=== PATIENT | female | born 2000 | race Caucasian/White ===

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

== ENCOUNTER 2022-11-24 16:39 | Emergency (ER) | payer SELFPAY ==
[2022-11-24 16:56] VITALS: BP 122/57; PULSE 97; RESP 16; TEMP 36.9; O2SAT 97; BMI 45.8
--- NOTE | 2022-11-24 16:57 | PC.NURSE ---
ELLYN MAR at for pt estefaniaal
[2022-11-24 16:59] LABS: Microscopic, Urine URINE MICROSCOPIC (MICROSCOPIC)
--- NOTE | 2022-11-24 17:00 | CT_ITS ---
PROCEDURE INFORMATION: Exam: CT Abdomen And Pelvis With Contrast Exam date and time: 11/24/2022 5:32 PM Age: 22 years old Clinical indication: Abdominal pain; Localized; Lower; Prior surgery; Surgery date: 1-6 months; Surgery type: Ovary; Additional info: Post-op pain TECHNIQUE: Imaging protocol: Computed tomography of the abdomen and pelvis with contrast. Radiation optimization: All CT scans at this facility use at least one of these dose optimization techniques: automated exposure control; mA and/or kV adjustment per patient size (includes targeted exams where dose is matched to clinical indication); or iterative reconstruction. Contrast material: ISOVUE; Contrast volume: 75 ml; Contrast route: IV; COMPARISON: ABDPELW CT abdomen pelvis w con 04/11/2019 5:03 PM FINDINGS: Lungs: No acute findings in the visualized lower lungs. No consolidation. Heart: The heart is not enlarged. Liver: Mild hepatomegaly. No mass. Gallbladder and bile ducts: The gallbladder is unremarkable. No calcified stones or biliary dilatation. Pancreas: The pancreas is normal. Spleen: Prominent splenomegaly approximate 17.3 cm long axis coronal image 43. Calcified granuloma. Adrenal glands: The adrenal glands are normal. Kidneys and ureters: The kidneys are normal. The ureters are normal. Stomach and bowel: There is a thickened left lower quadrant sigmoid loop with tiny hyperdense nodule suspicious for an inflamed diverticulum, with prominent pericolic soft tissue edema, series 3, images 103-112, coronal series 1001, images 45 -54. This is probably acute diverticulitis, differential would be colitis. No organized pericolic abscess. No extraluminal gas bubbles. No acute findings in the small intestine or stomach. Appendix: Post appendectomy. Intraperitoneal space: There is no free intraperitoneal air. No significant free intraperitoneal fluid collection. Vasculature: The vasculature is normal. Lymph nodes: Some prominent partially calcified right hilar and mediastinal lymph nodes in the chest.No significantly enlarged lymph nodes in the abdomen or pelvis by short axis criteria. Urinary bladder: The bladder is normal. Reproductive: Post left oophorectomy. Prominent right ovary measuring 5.0 x 3.1 x 3.6 cm diameter, containing a 2.7 cm cystic lesion, and additional smaller follicles. Axial series 3, image 110, coronal image 55. Retroverted uterus, unremarkable for age. Bones/joints: There is no evidence of acute fracture. Mild multilevel degenerative disc narrowing and spondylosis. Mild sacroiliitis. Soft tissues: There are no soft tissue masses or loculated fluid collections. IMPRESSION: 1. Findings most consistent with acute sigmoid diverticulitis. Thickened edematous sigmoid loop, small hyperdense, likely inflamed diverticulum, pericolic edema. No organized pericolic abscess or extraluminal gas bubbles. Less likely differential would be colitis. 2. Prominent right ovary with 2.7 cm cystic lesion, which is within normal limits size for age. Post left oophorectomy and left dermoid tumor resection since the prior CT. 3. Hepatosplenomegaly. 4. Additional nonemergency and chronic findings as above.
--- NOTE | 2022-11-24 17:01 | HMH.EDGENADL ---
Discharge Plan Disposition Patient Disposition: Home, Self-Care Condition: Good Prescriptions Prescriptions: New ciprofloxacin HCl 500 mg tablet 500 mg PO BID 10 Days Qty: 20 0RF metronidazole 500 mg tablet 500 mg PO BID 10 Days Qty: 20 0RF No Action metformin 500 tablet 500 tab PO BID norgestimate-ethinyl estradiol 1 EACH tablet 1 tab PO DAILY fluoxetine 20 MG capsule 30 mg PO DAILY hydrocodone-acetaminophen 1 TAB tablet 1 - 2 tab PO Q6HP PRN (Reason: Moderate Pain) Qty: 21 0RF amoxicillin-pot clavulanate 1 EACH tablet 1 tab PO Q12H Qty: 10 0RF Referrals Follow up/Referrals: Provider,Referral, MD [Primary Care Provider] - See instructions Clinical Impressions Clinical Impression: Diverticulitis Instructions Patient Instructions: DI for Acute Abdominal Pain, DI for Diverticulitis, Diverticulitis, Ciprofloxacin, Metronidazole Discharge ED Provider: Dougie Trejo General Adult HPI General Chief complaint: Abdominal Pain Stated complaint: lower ABD pain Time Seen by Provider: 11/24/22 16:48 Mode of Arrival: Ambulatory Source of Information: Patient and Spouse Limitations: No Limitations Description of Symptoms (Recalled from ER Triage Doc. by RN): pt comes in today with c/o abdominal pain that radiate into the left side of the groin. associated nausea. pt did have a left ovary removed previously this year. History of Present Illness HPI narrative: 22-year-old female, past medical history of appendicitis status post appendectomy several years ago, also had left oophorectomy due to numerous ovarian cysts including dermoid cyst causing pain. She has been exposed to family members with acute gastrointestinal illness including her brother who was seen here earlier today. She presents with nausea without vomiting however having significant abdominal pain in the lower abdomen particularly on the left side radiating into the groin. This pain started this morning, has been persistent throughout the day. She states she is having difficulty with bowel movements although was able to pass gas. Denies any abdominal distention, fevers, hematemesis, hematochezia or melena. No known history of inflammatory bowel disease, no prior history of bowel obstruction. She has not attempted any treatments for symptomatic relief prior to arrival here. Pain described as moderate, fairly constant Related Data Home Medications Medication Instructions Recorded Confirmed fluoxetine 20 mg capsule 30 mg PO DAILY Depression 04/11/19 04/17/19 metformin 500 mg tablet 500 tab PO BID Diabetes 04/11/19 04/17/19 norgestimate 0.25 mg-ethinyl 1 tab PO DAILY control 04/11/19 04/17/19 estradiol 35 mcg tablet Previous Rx's Medication Instructions Recorded amoxicillin 875 mg-potassium 1 tab PO Q12H #10 tabs 04/13/19 clavulanate 125 mg tablet hydrocodone 5 mg-acetaminophen 325 1 - 2 tab PO Q6HP PRN Moderate 04/13/19 mg tablet Pain #21 tabs ciprofloxacin HCl 500 mg tablet 500 mg PO BID 10 days #20 tabs 11/24/22 metronidazole 500 mg tablet 500 mg PO BID 10 days #20 tabs 11/24/22 Allergies Allergy/AdvReac Type Severity Reaction Status Date / Time No Known Allergies Allergy Verified 04/17/19 13:[address] [facility] Disclaimer: The information contained in this section may have been updated after the patient was seen, as this information can be updated by other users. Social History Smoking Status: Current every day smoker tobacco type: cigarettes packs per day: 1 second hand exposure: No alcohol intake: never current occupational status: student Travel in the last 8 weeks: None household members: family housing: other current occupational exposures/hazards: No caffeine: Yes ROS Obtained: Yes Systems reviewed as appropriate & no additional complaints except as documented Constitutional Constitutional: Reports system rev
[2022-11-24 17:06] LABS: Appearance,Urine CLOUDY (Clear); Bilirubin,Urine Negative (Negative); Blood, Urine 1+ (Negative); Color,Urine YELLOW (Yellow); Glucose,Urine (UA) Negative (Negative); Ketones,Urine Negative (Negative); Leukocyte Esterase,Urine 2+ (Negative); Nitrate,Urine Negative (Negative); Protein,Urine 1+ (Negative); Urine Pregnancy, HCG Qual. Negative (Negative); Urobilinogen,Urine 0.2 EU/dl (0.2)
[2022-11-24 17:28] LABS: Bacteria,Urine 2+ /lpf
[2022-11-24 17:48] LABS: Basophils # 0.2 K/mm3 (0-0.2); Eosinophils # 0.3 K/mm3 (0.0-0.4); Eosinophils % 1.8 % (0.1-12.0); Hematocrit 37.1 % (37.0-47.0); Hemoglobin 12.1 g/dL (12.2-16.2); Lymphocytes # 2.4 K/mm3 (0.7-4.5); Lymphocytes % 14.8 % (10-50); Mean Corpuscular HGB Conc 32.5 g/dL (31.8-35.4); Mean Corpuscular Hemoglobin 23.4 pg (27.0-31.2); Mean Corpuscular Volume 71.9 fl (81-99); Mean Platelet Volume 7.3 fl (7.4-10.4); Monocytes # 0.6 K/mm3 (0.1-1.0); Monocytes % 3.4 % (1.7-9.3); Platelet Count 377 K/mm3 (142-424); Red Blood Count 5.16 M/mm3 (4.20-5.40); Red Cell Distribution Width 15.4 % (11.5-17.5); White Blood Count 16.4 K/mm3 (4.8-10.8)
[2022-11-24 17:51] LABS: Chloride 102 mmol/L (98-107); Potassium 3.8 mmoL/L (3.5-5.1); Sodium 138 mmol/L (136-145)
[2022-11-24 17:53] LABS: Alanine Aminotransferase 14 U/L (12-78); Aspartate Amino Transferase 18 U/L (14-36); Blood Urea Nitrogen 8 mg/dl (7-17); Creatinine Clearance Estimated 133 mL/min (50-200); Estimated Glomerular Filt Rate 106 ml/min (>60); GFR (African American) 128 ML/MIN (>60)
[2022-11-24 17:54] LABS: Albumin Level 4.4 g/dl (3.5-5.0); Albumin/Globulin Ratio 1.2 (1.1-1.8); Alkaline Phosphatase 76 U/L (38-126); Anion Gap 12.8 mEq/L (5-15); Bilirubin,Total 0.5 mg/dl (0.2-1.3); Calcium 9.1 mg/dl (8.4-10.2); Carbon Dioxide 27 mmol/L (22.0-30.0); Globulin 3.8 g/dL (1.3-3.2); Glucose 98 mg/dl (74-100); Lipase 43 U/L (23-300); Total Protein,Serum 8.2 g/dl (6.3-8.2)
[2022-11-24 18:07] LABS: MANUAL DIFFERENTIAL MANUAL DIFFERENTIAL (MANUAL DIFF)
[2022-11-24 18:29] LABS: Eosinophils % 1 % (0-3); Hypochromasia 2+; Lymphocytes % 11 % (10-50); Monocytes % 3 % (2-9); Neutrophils % 85 % (42-76); Total Cells Counted 100
[2022-11-24 18:30] LABS: Microcytosis 1+; Platelet Estimate Normal
[2022-11-24 18:45] VITALS: BP 142/60; PULSE 78; RESP 18; TEMP 36.8; O2SAT 99
== END 2022-11-24 18:46 | disposition home or self-care (01) ==
PROVIDERS: Emergency Provider Emergency Medicine
DX: K57.92 Diverticulitis of intestine, part unspecified, without perforation or abscess without bleeding (principal); R10.32 Left lower quadrant pain; R11.0 Nausea; F17.210 Nicotine dependence, cigarettes, uncomplicated
CPT/HCPCS: 74177; 80053; 81001; 81025; 83690; 85007; 85025; 87086; 96361; 96374; 96375; 99285; J2405; Q9967

== ENCOUNTER 2025-01-29 21:53 | Outpatient (CLI) | payer OTHER, SELFPAY ==
[2025-01-29 22:29] LABS: Basophils % 0.6 % (0.1-2.0); Eosinophils # 0.2 K/mm3 (0.0-0.4); Eosinophils % 2.1 % (0.1-12.0); Hematocrit 35.6 % (37.0-47.0); Hemoglobin 10.9 g/dL (12.2-16.2); Lymphocytes # 1.7 K/mm3 (0.7-4.5); Lymphocytes % 23.4 % (10-50); Mean Corpuscular HGB Conc 30.6 g/dL (31.8-35.4); Mean Corpuscular Hemoglobin 23.6 pg (27.0-31.2); Mean Corpuscular Volume 77.1 fl (81-99); Mean Platelet Volume 9.9 fl (7.4-10.4); Monocytes # 0.5 K/mm3 (0.1-1.0); Monocytes % 6.4 % (1.7-9.3); Neutrophils # 4.8 K/mm3 (1.8-7.8); Neutrophils % 67.1 % (37.0-80.0); Platelet Count 279 K/mm3 (142-424); Red Blood Count 4.62 M/mm3 (4.20-5.40); Red Cell Distribution Width 15.1 % (11.5-17.5); White Blood Count 7.2 K/mm3 (4.8-10.8)
[2025-01-29 22:44] LABS: Microalbumin/Creatinine Ratio 39.1
[2025-01-29 22:45] LABS: Creatinine,Urine Random 68 mg/dL (Not Estab.); Hemoglobin A1C 6.4 % (4.0-6.0)
[2025-01-29 22:48] LABS: Chloride 101 mmol/L (98-107); Potassium 3.9 mmoL/L (3.5-5.1); Sodium 134 mmol/L (136-145)
[2025-01-29 22:50] LABS: Alanine Aminotransferase 27 U/L (12-78); Aspartate Amino Transferase 30 U/L (14-36); Blood Urea Nitrogen 8 mg/dl (7-17); Estimated Glomerular Filt Rate 198 ml/min (>60); GFR (African American) 239 ML/MIN (>60)
[2025-01-29 22:51] LABS: Albumin/Globulin Ratio 1.6 (1.1-1.8); Alkaline Phosphatase 66 U/L (38-126); Anion Gap 13.9 mEq/L (5-15); Bilirubin,Total 0.3 mg/dl (0.2-1.3); Calcium 8.7 mg/dl (8.4-10.2); Carbon Dioxide 23 mmol/L (22.0-30.0); Chol/HDL Ratio 3.3 (1-3.5); Cholesterol 104 mg/dl (140-200); Globulin 2.5 g/dL (1.3-3.2); Glucose 84 mg/dl (74-100); HDL Cholesterol 32 mg/dl (40-60); Total Protein,Serum 6.5 g/dl (6.3-8.2); Triglycerides 138 mg/dl (30-150); VLDL Cholesterol 28 mg/dL (0-40)
[2025-01-29 23:02] LABS: Direct LDL Cholesterol 52.44 mg/dL (100-129)
[2025-01-29 23:23] LABS: Thyroid Stimulating Hormone 2.41 uIU/mL (0.465-4.68)
[2025-01-29 23:27] LABS: Ferritin 22.2 ng/ml (6.24-137)
[2025-01-29 23:32] LABS: 25-OH Vitamin D, Total < 12.8 ng/mL (30-100)
[2025-01-30 00:55] LABS: Vitamin B12 230 pg/mL (239-931)
[2025-01-31 09:18] LABS: HBsAg Screen Negative (Negative); HCV Ab Non Reactive (Non Reactive); Hep A Ab, IGM Negative (Negative); Hep B Core Ab, IgM Negative (Negative)
== END 2025-01-29 23:59 | disposition home or self-care (01) ==
LOC: LAB.DROPOF 21:53
PROVIDERS: PCP Internal Medicine; Visit Provider Internal Medicine
DX: E28.2 Polycystic ovarian syndrome (principal); K57.92 Diverticulitis of intestine, part unspecified, without perforation or abscess without bleeding; R53.83 Other fatigue; R73.03 Prediabetes; D64.9 Anemia, unspecified; E55.9 Vitamin D deficiency, unspecified; R16.0 Hepatomegaly, not elsewhere classified; R16.1 Splenomegaly, not elsewhere classified; E66.01 Morbid (severe) obesity due to excess calories; Z68.43 Body mass index [BMI] 50.0-59.9, adult; Z13.1 Encounter for screening for diabetes mellitus; Z11.59 Encounter for screening for other viral diseases
CPT/HCPCS: 80053; 80061; 80074; 82043; 82306; 82570; 82607; 82728; 83036; 84443; 85025; 86803

== ENCOUNTER 2025-09-24 23:10 | Emergency (ER) | payer SELFPAY ==
--- NOTE | 2025-09-24 23:13 | HMH.EDGENADL ---
Discharge Plan Disposition Patient Disposition: Home, Self-Care Condition: Good Prescriptions Prescriptions: New amoxicillin-pot clavulanate 400-57 mg/5 mL suspension for reconstitution 10 ml PO BID 5 Days Qty: 100 0RF ondansetron HCl 4 mg/5 mL solution 4 mg PO TID PRN (Reason: nausea and vomiting) 2 Days Qty: 50 0RF No Action ferrous sulfate 300 mg (60 mg iron)/5 mL liquid 300 mg PO DAILY Qty: 150 5RF cholecalciferol (vitamin D3) 50 mcg (2,000 unit) tablet,chewable 50 mcg PO DAILY Qty: 30 5RF Referrals Follow up/Referrals: Mich Moe MD [Primary Care Provider, Family Practice] - See instructions Activity Restrictions/Add. Instructions Additional Instructions/Restrictions: Please take antibiotics as prescribed for treatment of diverticulitis. Please follow-up with your primary care provider. Please return to the emergency department if you develop any new or worsening symptoms or become concerned for your health. Clinical Impressions Clinical Impression: Diverticulitis Instructions Patient Instructions: DI for Diverticulitis Print Language Print Language: Singaporean Discharge ED Provider: Fidel Chambers General Adult HPI General Chief complaint: Abdominal Pain Stated complaint: abd history diverticulitis Time Seen by Provider: 09/24/25 23:13 History of Present Illness HPI narrative: 25-year-old female with history of reticulitis and PCOS and morbid presents for abdominal pain. She reports it is centrally located, lower in the abdomen but radiating up. Started a few hours ago. She reports that it feels worse when she had diverticulitis. She has had appendicitis in the past and has had an appendectomy. She also had a left oophorectomy. She reports nausea. She has bowel movements every other day, no history of significant constipation Related Data Previous Rx's ?Medication ?Instructions ?Recorded cholecalciferol (vitamin D3) 50 50 mcg PO DAILY #30 tabs 02/11/ mcg (2,000 unit) chewable tablet ferrous sulfate 300 mg (60 mg 300 mg (5 mL) PO DAILY #150 mL 02/11/25 iron)/5 mL oral liquid amoxicillin 400 mg-potassium 10 ml PO BID 5 days #100 mL 09/25/25 clavulanate 57 mg/5 mL oral suspension ondansetron HCl 4 mg/5 mL oral 4 mg (5 mL) PO TID PRN nausea and 09/25/25 solution vomiting 48 hours #50 mL Allergies Allergy/AdvReac Type Severity Reaction Status Date / Time No Known Allergies Allergy Verified 03/19/25 14:06 [facility] Disclaimer: The information contained in this section may have been updated after the patient was seen, as this information can be updated by other users. Medical History B12 deficiency Microcytic anemia Prophylactic ovary removal Surgical History History of appendectomy Social History Smoking Status: Never smoker second hand exposure: No alcohol intake: never current occupational status: student Travel in the last 8 weeks?: None household members: family housing: other current occupational exposures/hazards: No caffeine: Yes Have you lived/traveled outside [place] in past 30 days?: No Contact w/someone who lives/traveled outside US past 30 days?: No Exposure to someone with infectious disease in past 14 days?: No Do you have a fever (greater than 100.4 F or 38 C)?: No Have you tested positive for COVID-19?: No Exposed to someone with COVID-19 in past 14 days?: No Do you have a sore throat?: No Do you have a cough?: No Do you have any weakness?: No Do you have any diarrhea?: No Are you experiencing any unusual bleeding?: No Do you have any muscle aches/pain?: No Do you have any abdominal pain?: Yes Are you experiencing loss of taste or smell?: No Other Medical History Have you received the Flu Vaccine for this season: No Have you received the Pneumonia Vaccine: No ROS Obtained: Yes All systems reviewed & no additional complaints except as documented Physical Exam General General appearance: alert and in no apparent distress Head Head exam: atraumatic and normocephalic Eye Eye exam: Present normal appearance, PERRL and EOMI ENT ENT exam: Present normal oropharynx and normal external ear exam Neck Neck exam: Present normal inspection and full ROM Chest Chest inspection: Present normal inspection and symmetric chest wall rise; Absent tenderness Respiratory Respiratory exam: Present normal lung sounds bilaterally; Absent respiratory distress Cardiovascular Cardiovascular exam: Present regular rate and normal rhythm Abdominal Exam Abdominal exam: Present soft and tenderness (Suprapubic, epigastric, mild); Absent distention or guarding Extremities Exam Extremities exam: Present normal inspection; Absent edema or joint swelling Back Exam Back exam: Present normal inspection; Absent tenderness Neurological Exam Neurological exam: Present alert and oriented X3; Absent motor sensory deficit Psychiatric Psychiatric exam: Present normal affect and normal mood Skin Skin exam: Present warm, dry and normal color Lymphatic Lymphatic Findings: no adenopathy Medical Decision Making Medical Records Medical records reviewed: Yes I reviewed the patient's medical records. Screening: Per USPSTF and CDC recommendations, given the prevalence of disease in our region, it is our hospital?s policy to screen for HIV and viral Hepatitis for all patients aged 18 and over and those with ongoing risk factors. Wilder Inquiry Pt receiving controlled substance: No Wilder was queried for this patient: No Vital Signs: 09/24/25 23:20 09/24/25 23:36 09/25/25 01:14 Temperature 97.8 F 97.8 F 97.9 F Temperature Source Oral Oral Oral Pulse Rate 97 H 73 Pulse Rate [Right Radial] 100 H Respiratory Rate 18 16 16 Blood Pressure 131/89 117/67 Blood Pressure [Right Arm] 163/91 H Blood Pressure Mean [Right Arm] 115 Blood Pressure Source Automatic Cuff Automatic Cuff Blood Pressure Source [Right Arm] Automatic Cuff Blood Pressure Position Sitting Supine Blood Pressure Position [Right Arm] Sitting 02 Sat by Pulse Oximetry 100 99 Oxygen Delivery Method Room Air Room Air Room Air Lab Data Lab results reviewed: Yes I reviewed the patient's lab results. Lab Results 09/24/25 23:23: Urine Color Yellow, Urine Appearance Clear, Urine pH 6.0, Ur Specific [place] 1.020, Urine Protein Negative, Urine Glucose (UA) Negative, Urine Ketones Negative, Urine Blood Negative, Urine Nitrate Positive A, Urine Bilirubin Negative, Urine Urobilinogen 0.2, Ur Leukocyte Esterase Negative, Urine RBC None, Urine WBC None, Ur Squamous Epith Cells None, Urine Bacteria 4+, Urine HCG, Qual Negative, Ur C. trach DNA (PCR) Negative, U N.gonorrhoeae DNA PCR Negative, T. vaginalis (PCR) Negative 09/24/25 23:30: WBC 15.8 H, RBC 5.16, Hgb 11.8 L, Hct 37.7, MCV 73.1 L, MCH 22.9 L, MCHC 31.3 L, RDW 14.6, Plt Count 317, MPV 9.1, Neut % (Auto) 81.1 H, Lymph % (Auto) 13.7, [place] % (Auto) 3.8, Eos % (Auto) 0.8, Baso % (Auto) 0.3, Neut # (Auto) 12.8 H, Lymph # (Auto) 2.2, [place] # (Auto) 0.6, Eos # (Auto) 0.1, Baso # (Auto) 0.0, Sodium 136, Potassium 4.1, Chloride 102, Carbon Dioxide 26, Anion Gap 12.1, BUN 11, Creatinine 0.70, Estimated Creat Clear 121, Estimated GFR 103, Est GFR ( Amer) 124, Glucose 130 H, Calcium 9.0, Magnesium 1.9, Total Bilirubin 0.6, AST 21, ALT 20, Alkaline Phosphatase 66, Total Protein 7.8, Albumin 4.9, Globulin 2.9, Albumin/Globulin Ratio 1.7, Lipase 61 09/24/25 23:30 09/24/25 23:30 Orders (Tests/Meds): ED MEDICATIONS Discontinued Medications Generic Name Dose Route Start Last Admin Trade Name Asaelq PRN Reason Stop Dose Admin Acetaminophen 1,000 mg 09/24/25 23:39 09/24/25 23:52 Acetaminophen 500mg Tab PO 09/24/25 23:40 1,000 mg ONCE ONE Administration Amoxicillin/Clavulanate Potassium 1 each 09/25/25 00:48 09/25/25 00:56 Amoxicillin/Clavulanate Potassium 875/125mg Tablet PO 09/25/25 00:49 1 each ONCE ONE Administration Belladonna Alkaloids 60 ml 09/24/25 23:39 09/24/25 23:52 Belladonna Alkaloids 60 Ml Ml PO 09/24/25 23:40 60 ml ONCE ONE Administration Iopamidol 75 ml 09/25/25 00:12 09/25/25 00:12 Iopamidol-370 (76%);100ml Bottle IV 09/25/25 00:13 75 ml ONCE ONE Administration Ketorolac Tromethamine 30 mg 09/24/25 23:43 09/24/25 23:52 Ketorolac 30mg/Ml Vial IV 09/24/25 23:44 30 mg ONCE ONE Administration Morphine Sulfate 4 mg 09/24/25 23:39 09/24/25 23:52 Morphine 4mg/Ml Syringe IV 09/24/25 23:40 4 mg ONCE ONE Administration Ondansetron HCl 4 mg 09/24/25 23:39 09/24/25 23:53 Ondansetron 4mg/2ml Vial IV 09/24/25 23:40 4 mg ONCE ONE Administration Sodium Chloride 10 ml 09/25/25 00:12 09/25/25 00:13 Sodium Chloride 0.9% 10ml Syr (Rad Only) IV 10/25/25 00:11 10 ml NEEDED PRN Administration Maintain IV Site ORDERS Category Date Time Status CT abdomen pelvis w con Stat Cat Scan 09/24/25 23:42 Completed CBC w/Auto Diff [Complete Blood Count Auto Diff] Stat Lab 09/24/25 23:30 Completed CMP [Comprehensive Metabolic Panel] Stat Lab 09/24/25 23:30 Completed Lipase Stat Lab 09/24/25 23:30 Completed Magnesium Stat Lab 09/24/25 23:30 Completed Urinalysis and Microscopic Stat Lab 09/24/25 23:23 Completed Urine Chlam/Gono/Trich ([facility]) Stat Lab 09/24/25 23:23 Completed Urine , HCG Qual. Stat Lab 09/24/25 23:23 Completed Urine Culture Stat Micro 09/24/25 23:23 Received Medical Decision Narrative: 25-year-old female with history of diverticulitis, obesity, PCOS, presents for midline abdominal pain. Denies any urinary symptoms.. History was obtained via interactive discussion with patient, chart review. On arrival, patient is [afebrile, hemodynamically stable, satting appropriately, alert, oriented x4, GCS 15], moving all extremities spontaneously. Full physical exam performed and significant for mild midline abdominal tenderness to palpation Differential includes but is not limited to diverticulitis, UTI, kidney stone, ovarian pathology, gastroenteritis, pancreatitis. Patient was given Tylenol Toradol morphine Zofran GI cocktail for symptomatic management and correction of underlying abnormalities. Workup initiated including CBC CMP test lipase urinalysis CT abdomen and pelvis with IV contra. On re-evaluation, patient [remains afebrile, HD stable.] Laboratory workup independently interpreted by me and significant for mild leukocytosis with white count of 15, no significant electrolyte derangement. Urinalysis does have positive nitrates and 4+ bacteria, but has no WBCs. negative.. Imaging independently interpreted by me and significant for findings consistent with sigmoid diverticulitis. See radiology read for full review of final results. Given patient history, exam and workup, patient's presentation most likely represents sigmoid diverticulitis. The patient has a urinalysis concerning for infection, but she does not have any urinary symptoms and has a clear other source for her abdominal pain. Given this, we will treat for diverticulitis with Augmentin. Urine culture results could be followed up. Patient discharged with prescription for Zofran and Augmentin. Return precautions given.. Procedures Risk/Benefits of Procedure(s) Were Explained: Yes Critical Care Critical Care Time Critical Care Time: No
[2025-09-24 23:20] VITALS: BP 163/91; PULSE 100; RESP 18; TEMP 36.6; O2SAT 100; BMI 50.1
[2025-09-24 23:32] LABS: Microscopic, Urine URINE MICROSCOPIC (MICROSCOPIC)
[2025-09-24 23:36] VITALS: BP 131/89; PULSE 97; RESP 16; TEMP 36.6; O2SAT 99
[2025-09-24 23:40] LABS: Bilirubin,Urine Negative (Negative); Color,Urine YELLOW (Yellow); Glucose,Urine (UA) Negative (Negative); Ketones,Urine Negative (Negative); Leukocyte Esterase,Urine Negative (Negative); PH,Urine 6.0 (5.0-8.5); Protein,Urine Negative (Negative); Specific Gravity, Urine 1.020 (1.005-1.030); Urobilinogen,Urine 0.2 EU/dl (0.2)
[2025-09-24 23:41] LABS: Urine Pregnancy, HCG Qual. Negative (Negative)
--- NOTE | 2025-09-24 23:42 | CT_ITS ---
PROCEDURE INFORMATION: Exam: CT Abdomen And Pelvis With Contrast Exam date and time: 09/25/2025 12:03 AM Age: 25 years old Clinical indication: Abdominal pain; Additional info: Central abd pain, HX divertic, appy, L oopharect TECHNIQUE: Imaging protocol: Computed tomography of the abdomen and pelvis with contrast. Radiation optimization: All CT scans at this facility use at least one of these dose optimization techniques: automated exposure control; mA and/or kV adjustment per patient size (includes targeted exams where dose is matched to clinical indication); or iterative reconstruction. Contrast material: ISOVUE; Contrast volume: 75 ml; Contrast route: IV; COMPARISON: CT ABDOMEN PELVIS W CON 11/24/2022 5:32 PM FINDINGS: Liver: Normal. No mass. Gallbladder and biliary ducts: Normal. No calcified stones. No ductal dilation. Pancreas: Normal. No ductal dilation. Spleen: Normal. No splenomegaly. Adrenal glands: Normal. No mass. Kidneys and ureters: Normal. No hydronephrosis. Stomach and bowel: Mild sigmoid diverticulosis. Fatty stranding suggesting acute inflammation about the sigmoid colon and adjacent small bowel loops concerning for sigmoid diverticulitis and/or enteritis. No evidence of bowel obstruction. Appendix: No evidence of appendicitis. Intraperitoneal space: Unremarkable. No free air. No significant fluid collection. Vasculature: Unremarkable. No abdominal aortic aneurysm. Lymph nodes: Unremarkable. No enlarged lymph nodes. Urinary bladder: Unremarkable as visualized. Reproductive: Unremarkable as visualized. Bones/joints: Unremarkable. No acute fracture. Soft tissues: Unremarkable. IMPRESSION: Inflammatory changes in the pelvis with the appearance suggesting sigmoid diverticulitis and/or adjacent enteritis.
[2025-09-24 23:47] LABS: Hematocrit 37.7 % (37.0-47.0); Hemoglobin 11.8 g/dL (12.2-16.2); Immature Granulocytes % 0.3 %; Mean Corpuscular HGB Conc 31.3 g/dL (31.8-35.4); Mean Corpuscular Hemoglobin 22.9 pg (27.0-31.2); Mean Corpuscular Volume 73.1 fl (81-99); Nucleated Red Blood Cells % 0 %; Platelet Count 317 K/mm3 (142-424); Red Blood Count 5.16 M/mm3 (4.20-5.40); Red Cell Distribution Width-SD 38.4 fL; White Blood Count 15.8 K/mm3 (4.8-10.8)
[2025-09-24 23:51] LABS: Bacteria,Urine 4+ /lpf
[2025-09-24 23:52] LABS: Albumin Level 4.9 g/dl (3.5-5.0); Chloride 102 mmol/L (98-107); Sodium 136 mmol/L (136-145)
[2025-09-24] MEDS: BELLADONNA ALKALOIDS 60 ML ML PO (23:52)
[2025-09-24] MEDS: ACETAMINOPHEN 500MG TAB 1000 MG PO (23:52)
[2025-09-24] MEDS: KETOROLAC 30MG/ML VIAL 30 MG IV (23:52)
[2025-09-24] MEDS: MORPHINE 4MG/ML SYRINGE 4 MG IV (23:52)
[2025-09-24 23:53] LABS: Potassium 4.1 mmoL/L (3.5-5.1)
[2025-09-24] MEDS: ONDANSETRON 4MG/2ML VIAL 4 MG IV (23:53)
[2025-09-24 23:55] LABS: Alanine Aminotransferase 20 U/L (12-78); Albumin/Globulin Ratio 1.7 (1.1-1.8); Alkaline Phosphatase 66 U/L (38-126); Anion Gap 12.1 mEq/L (5-15); Aspartate Amino Transferase 21 U/L (14-36); Bilirubin,Total 0.6 mg/dl (0.2-1.3); Blood Urea Nitrogen 11 mg/dl (7-17); Calcium 9.0 mg/dl (8.4-10.2); Carbon Dioxide 26 mmol/L (22.0-30.0); Creatinine Clearance Estimated 121 mL/min (50-200); Creatinine,Serum 0.70 mg/dl (0.52-1.04); Estimated Glomerular Filt Rate 103 ml/min (>60); GFR (African American) 124 ML/MIN (>60); Globulin 2.9 g/dL (1.3-3.2); Glucose 130 mg/dl (74-100); Lipase 61 U/L (23-300); Total Protein,Serum 7.8 g/dl (6.3-8.2)
[2025-09-24 23:56] LABS: Magnesium 1.9 mg/dl (1.6-2.3)
[2025-09-25] MEDS: IOPAMIDOL-370 (76%);100ML BOTTLE 75 ML IV (00:12)
[2025-09-25] MEDS: SODIUM CHLORIDE 0.9% 10ML SYR (RAD ONLY) 10 ML IV (00:13)
[2025-09-25] MEDS: AMOXICILLIN/CLAVULANATE POTASSIUM 875/125MG TABLET 1 EACH PO (00:56)
[2025-09-25 01:14] VITALS: BP 117/67; PULSE 73; RESP 16; TEMP 36.6
--- NOTE | 2025-09-28 02:13 | PC.NURSE ---
No change to abx per Dr. Chambers
== END 2025-09-25 01:16 | disposition home or self-care (01) ==
PROVIDERS: Emergency Provider Emergency Medicine; PCP Family Medicine
DX: R10.24 Suprapubic pain (principal); R10.13 Epigastric pain; K57.32 Diverticulitis of large intestine without perforation or abscess without bleeding; N39.0 Urinary tract infection, site not specified; R11.0 Nausea; B96.20 Unspecified Escherichia coli [E. coli] as the cause of diseases classified elsewhere
CPT/HCPCS: 74177; 80053; 81001; 81025; 83690; 83735; 85025; 87086; 87088; 87186; 87491; 87591; 87661; 96374; 96375; 99285; J1885; J2270; J2405; Q9967